=== PATIENT | male | born 1960 | race Caucasian/White ===

== ENCOUNTER → 2018-12-02 | Outpatient (CLI) | payer BC ==
[2018-12-02 10:38] LABS: BLOOD UREA NITROGEN 16 MG/DL (7-18); CREATININE FOR GFR 0.86 MG/DL (0.70-1.30); GLOMERULAR FILTRATION RATE > 60.0 (>56); RHEUMATOID FACTOR QUANT < 10.0 IU/ML (<15.0)
[2018-12-02 10:46] LABS: VITAMIN B12 LEVEL 195 PG/ML
[2018-12-02 10:47] LABS: FOLATE 8.5 NG/ML
[2018-12-02 11:13] LABS: HEMOGLOBIN A1c 6.2 %
[2018-12-07 00:06] LABS: ANTINUCLEAR ANTIBODIES DIRECT Negative (Negative); CERULOPLASMIN 20.6 mg/dL (16.0-31.0); COPPER PLASMA 99 ug/dL (72-166); LEAD BLOOD ADULT 1 ug/dL (0-4); Lyme Disease IgG/IgM Antibodie <0.91 ISR (0.00-0.90); Lyme Disease IgM Ab Quantitati <0.80 index (0.00-0.79); MERCURY LEVEL None Detected ug/L (0.0-14.9); VITAMIN B1 LEVEL WHOLE BLOOD 129.1 nmol/L (66.5-200.0); VITAMIN B6,PYRIDOXAL PHOSPHATE 5.2 ug/L (5.3-46.7); VITAMIN E(ALPHA TOCOPHEROL) 11.3 mg/L (7.0-25.1); VITAMIN E(GAMMA TOCOPHEROL) 1.3 mg/L (0.5-5.5)
[2018-12-07 13:37] LABS: ALBUMIN 4.26 GM/DL (3.29-5.55); ALBUMIN % 60.8 % (55.8-66.1); ALPHA-1-GLOBULIN % 4.2 % (2.9-4.9); ALPHA-1-GLOBULINS 0.29 GM/DL (0.17-0.41); ALPHA-2-GLOBULINS 0.83 GM/DL (0.42-0.99); ALPHA-2-GLOBULINS % 11.8 % (7.1-11.8); BETA-1-GLOBULINS 0.47 GM/DL (0.28-0.60); BETA-1-GLOBULINS % 6.7 % (4.7-7.2); BETA-2-GLOBULINS 0.39 GM/DL (0.19-0.55); BETA-2-GLOBULINS % 5.6 % (3.2-6.5); GAMMA GLOBULIN % 10.9 % (11.1-18.8); GAMMA GLOBULINS 0.76 GM/DL (0.65-1.58)
== END ==
LOC: M LAB 08:58
PROVIDERS: ATTEND Psychiatry & Neurology Neurology
DX: G62.9 Polyneuropathy, unspecified (principal); E11.9 Type 2 diabetes mellitus without complications

== ENCOUNTER → 2019-04-26 | Outpatient (CLI) | payer BC ==
[2019-04-26 16:55] LABS: BASO # 0.1 10^3/uL (0.0-0.2); BASO % 0.9 % (0.0-1.0); EOS # 0.2 10^3/uL (0.0-0.5); EOS % 3.3 % (0.0-3.0); HEMATOCRIT 45.1 % (42.0-52.0); HEMOGLOBIN 15.3 g/dl (13.5-17.5); LYMPH # 2.1 10^3/uL (1.5-5.0); LYMPH % 28.1 % (24.0-44.0); MEAN CORPUSCULAR HEMOGLOBIN 31.7 pg (27.0-33.0); MEAN CORPUSCULAR HGB CONC 33.9 g/dl (32.0-36.5); MEAN CORPUSCULAR VOLUME 93.6 fl (80.0-96.0); MONO # 0.7 10^3/uL (0.0-0.8); NEUTROPHILS # 4.2 10^3/uL (1.5-8.5); NEUTROPHILS % 57.6 % (36.0-66.0); PLATELET COUNT, AUTOMATED 358 10^3/uL (150-450); RED BLOOD COUNT 4.82 10^6/uL (4.30-6.10); WHITE BLOOD COUNT 7.4 10^3/uL (4.0-10.0)
[2019-04-26 17:06] LABS: FOLATE 4.9 NG/ML
[2019-04-30 08:06] LABS: ANTI-PARIETAL CELL ANTIBODY 1.7 Units (0.0-20.0); VITAMIN B1 LEVEL WHOLE BLOOD 133.3 nmol/L (66.5-200.0); VITAMIN B6,PYRIDOXAL PHOSPHATE 88.5 ug/L (5.3-46.7); VITAMIN E(ALPHA TOCOPHEROL) 9.7 mg/L (7.0-25.1); VITAMIN E(GAMMA TOCOPHEROL) 1.4 mg/L (0.5-5.5)
== END ==
LOC: M LAB 14:50
PROVIDERS: ATTEND Psychiatry & Neurology Neurology
DX: D64.9 Anemia, unspecified (principal); E53.9 Vitamin B deficiency, unspecified

== ENCOUNTER 2023-09-16 08:18 | Day surgery (SDC) | payer OTHER ==
[~2023-09-16] VITALS: Ht 177.8 cm; Wt 97.6 kg
[~2023-09-16 08:18] MED LIST: BAYE81TA10 PO; DULO-34 PO; DULO1CAP4 PO; GABA600T4 PO; LISI10TA22 PO; OMEP40CA5 PO; PRAV80TA2 PO; PREG100C2 PO; THERTAB52 PO
[2023-09-16] MEDS: NS 1,000 ML IV ONE (09:00)
[2023-09-16] MEDS ORDERED: propofoL 200 MG/20 ML VIAL As Ordered ONE (09:54)
[2023-09-16] MEDS ORDERED: LIDOCAINE 2% 100MG/5ML SDV (FOR ANES.) As Ordered ONE (09:54)
[2023-09-16] MEDS ORDERED: fentaNYL 100 MCG/2 ML INJECTION As Ordered ONE (09:56)
[2023-09-16 11:01] VITALS: TEMP 98.6
[2023-09-16 11:20] VITALS: BP 132/66; O2SAT 97
== END 2023-09-16 11:26 | disposition home or self-care (01) ==
LOC: M OPP 08:18
PROVIDERS: ATTEND Internal Medicine Gastroenterology
DX: R11.10 Vomiting, unspecified (principal); R12 Heartburn; Z87.891 Personal history of nicotine dependence; Z86.73 Personal history of transient ischemic attack (TIA), and cerebral infarction without residual deficits; Z79.02 Long term (current) use of antithrombotics/antiplatelets; Z79.82 Long term (current) use of aspirin; Z79.891 Long term (current) use of opiate analgesic; Z79.899 Other long term (current) drug therapy
CPT/HCPCS: 43235; J3010

== ENCOUNTER → 2025-01-11 | Outpatient (REF) | payer MEDICARE, OTHER ==
[~2025-01-11] MED LIST changes: +GABA-1490 PO; -GABA600T4 PO; -PRAV80TA2 PO; +PRAV80TA75 PO
[2025-01-11 14:50] LABS: CREATININE, URINE 181.2 MG/DL; MALB URINE SIEMENS 5.0 MG/L; MAU/CREAT RATIO 2.7 MCG/MG (0.0-30.0)
[2025-01-11 15:16] LABS: ALT/SGPT 28 U/L (7.0-40); AST/SGOT 20 U/L (<34); CALCIUM LEVEL 8.4 MG/DL (8.3-10.6); CARBON DIOXIDE LEVEL 30 MMOL/L (20-31); CHLORIDE LEVEL 107 MMOL/L (98-107); CHOLESTEROL LEVEL 264 MG/DL (<200); CHOLESTEROL RISK RATIO 5.85 (<5); CREATININE FOR GFR 0.79 MG/DL (0.70-1.30); GLOMERULAR FILTRATION RATE > 90.0 (>49); LDL CHOLESTEROL 197.9 MG/DL (<100); NON-HDL-C 218.9 MG/DL; POTASSIUM SERUM 4.6 MMOL/L (3.5-5.1); SODIUM LEVEL 144 MMOL/L (136-145); TRIGLYCERIDES LEVEL 105 MG/DL (<150)
[2025-01-11 15:35] LABS: ESTIMATED AVERAGE GLUCOSE 120.0 MG/DL (60-110)
== END ==
LOC: M LAB REF 12:20
PROVIDERS: ATTEND Student in an Organized Health Care Education/Training Program
DX: I10 Essential (primary) hypertension (principal); Z68.29 Body mass index [BMI] 29.0-29.9, adult; Z79.899 Other long term (current) drug therapy